=== PATIENT | male | born 1970 | race Caucasian/White ===

== ENCOUNTER → 2016-07-05 | Outpatient (CLI) | payer BC | LOC: M LAB 07:46 | PROVIDERS: ATTEND Family Medicine | DX: E78.2 Mixed hyperlipidemia (principal) ==

== ENCOUNTER 2016-10-12 21:03 | Emergency (ER) | payer BC ==
[~2016-10-12] VITALS: Ht 188 cm; Wt 102.1 kg
[2016-10-12] MEDS ORDERED: FISH1000 PO (21:16)
[2016-10-12] MEDS ORDERED: PROTPAK PO (21:17)
[2016-10-12] MEDS ORDERED: MULTCAP12 PO (21:18)
[2016-10-12] MEDS ORDERED: ASCO25TA PO (21:19)
[2016-10-12] MEDS ORDERED: VITA200T4 PO (21:20)
[2016-10-12] MEDS ORDERED: GI COCKTAIL 50ML BTL(HYOSCYAMINE/MAALOX/LIDOCAINE VISCOUS)(1:3:1) PO ONE (21:45)
[2016-10-12] MEDS ORDERED: NAPROXEN 250 MG TAB PO ONE (21:45)
[2016-10-12 21:57] LABS: BASO % 0.7 % (0.0-1.0); EOS # 0.2 K/mm3 (0.0-0.50); EOS % 4.5 % (0.0-3.0); LARGE UNSTAINED CELL # 0.1 K/mm3 (0.0-0.4); LARGE UNSTAINED CELL % 2.6 % (0.0-4.0); LYMPH % 34.6 % (24.0-44.0); MEAN CORPUSCULAR HGB CONC 33.4 g/dl (32.0-36.5); MONO # 0.3 K/mm3 (0.0-0.8); NEUTROPHILS # 2.8 K/mm3 (1.8-7.7); NEUTROPHILS % 51.6 % (36.0-66.0); PLATELET COUNT, AUTOMATED 248 k/mm3 (150-450); WHITE BLOOD COUNT 5.5 K/mm3 (4.0-10.0)
[2016-10-12 22:26] LABS: ANION GAP 8 MEQ/L (8-16); BLOOD UREA NITROGEN 17 MG/DL (7-18); CALCIUM LEVEL 8.1 MG/DL (8.5-10.1); CARBON DIOXIDE LEVEL 26 MEQ/L (21-32); CHLORIDE LEVEL 108 MEQ/L (98-107); CREATININE FOR GFR 0.86 MG/DL (0.70-1.30); GLOMERULAR FILTRATION RATE > 60.0 (>60); GLUCOSE, FASTING 99 MG/DL (70-105); SODIUM LEVEL 142 MEQ/L (136-145)
[2016-10-12] MEDS ORDERED: ASPIRIN 81 MG CHEW TABLET PO ONE (22:45)
[2016-10-13] MEDS ORDERED: NAPR500T PO (02:31)
[2016-10-13 02:40] VITALS: BP 118/65
--- NOTE | 2016-10-13 11:23 | REP ---
CHEST, TWO VIEWS: HISTORY: Chest pain. COMPARISON: 10/31/2014 FINDINGS: The superior mediastinal structures are midline. The cardiac silhouette is unremarkable in size, shape and position. The diaphragmatic surfaces of the lungs are regular and the costophrenic angles are clear. The pulmonary mock are clear. The imaged osseous structures are intact. IMPRESSION: There is no acute cardiopulmonary disease. Signed by Olegario Ness DO 10/13/2016 01:32 P
--- NOTE | 2016-10-13 14:46 | ECGEPIP ---
Stationary ECG Study [facility] - ED Test Date: 2016-10-12 Pat Name: HIRAM KING Department: Room: - Gender: M Html Web Developer: : [id number] Requested By: SAIRA ST Order Number: [id number] Reading MD: Bel Montoya Measurements Intervals [place] Rate: 56 P: 9 OH: 181 QRS: 18 QRSD: 96 T: 15 QT: 408 QTc: 395 Interpretive Statements SINUS BRADYCARDIA DECREASED RATE 10/31/14 Electronically Signed On 10-13-2016 14:45:51 EDT by Bel Montoya
== END 2016-10-13 02:41 | disposition home or self-care (01) ==
LOC: M ED 22:06
DX: R07.89 Other chest pain (principal); I10 Essential (primary) hypertension; Z79.899 Other long term (current) drug therapy

== ENCOUNTER → 2018-04-14 | Outpatient (CLI) | payer BC ==
[2018-04-14 09:59] LABS: ERYTHROCYTE SEDIMENTATION RATE 15 mm/hr (0-15)
[2018-04-14 10:42] LABS: ALBUMIN/GLOBULIN RATIO 1.14 (1.00-1.93); ALKALINE PHOSPHATASE 101 U/L (45-117); ALT/SGPT 30 U/L (12-78); ANION GAP 8 MEQ/L (8-16); AST/SGOT 25 U/L (7-37); BILIRUBIN,TOTAL 0.6 MG/DL (0.2-1.0); BLOOD UREA NITROGEN 18 MG/DL (7-18); CALCIUM LEVEL 9.2 MG/DL (8.5-10.1); CARBON DIOXIDE LEVEL 26 MEQ/L (21-32); CHLORIDE LEVEL 107 MEQ/L (98-107); CHOLESTEROL LEVEL 261 MG/DL (<200); CHOLESTEROL RISK RATIO 6.365 (<5); CREATININE FOR GFR 0.86 MG/DL (0.70-1.30); GLOMERULAR FILTRATION RATE > 60.0 (>60); GLUCOSE, FASTING 98 MG/DL (70-100); HDL CHOLESTEROL 41 MG/DL (>40); LDL CHOLESTEROL 187 MG/DL (<100); NON-HDL-C 220 MG/DL; POTASSIUM SERUM 4.6 MEQ/L (3.5-5.1); RHEUMATOID FACTOR QUANT < 10.0 IU/ML (<15.0); SODIUM LEVEL 141 MEQ/L (136-145); TOTAL 25(OH) VITAMIN D 27.5 NG/ML (30.0-100.0); TOTAL PROTEIN 7.5 GM/DL (6.4-8.2); TRIGLYCERIDES LEVEL 165 MG/DL (<150)
[2018-04-16 00:08] LABS: ANTINUCLEAR ANTIBODIES DIRECT Negative (Negative); Lyme Disease IgG/IgM Antibodie <0.91 ISR (0.00-0.90); Lyme Disease IgM Ab Quantitati <0.80 index (0.00-0.79)
== END ==
LOC: M LAB 08:51
DX: Z00.00 Encounter for general adult medical examination without abnormal findings (principal); M12.9 Arthropathy, unspecified; E55.9 Vitamin D deficiency, unspecified
CPT/HCPCS: 84443

== ENCOUNTER → 2018-07-15 | Outpatient (CLI) | payer BC ==
[~2018-07-15] MED LIST: ASCO25TA PO; FISH1000 PO; MULTCAP12 PO; NAPR-50 PO; PROTPAK PO; VITA200T4 PO
--- NOTE | 2018-07-15 14:24 | REP ---
Chest two views HISTORY: Bronchitis Comparison: 10/12/2016 The lungs are clear. The heart is normal in size. The pulmonary vasculature is normal in appearance. The bony structure is intact. IMPRESSION: No acute disease. Electronically Signed by Norris Piper MD 07/15/2018 02:15 P
== END ==
LOC: M WUC 13:53
PROVIDERS: ATTEND Physician Assistant
DX: J20.9 Acute bronchitis, unspecified (principal)